=== PATIENT | female | born 1965 | race Caucasian/White ===

== ENCOUNTER → 2017-02-01 | Emergency (ER) | payer SELFPAY ==
[~2017-02-01] VITALS: Ht 167.6 cm; Wt 54.4 kg
[~2017-02-01] MED LIST: ALBUTEROL SULF8.5 GM INH; Albuterol ud Inhalation HHN SCH; ROBITUSSIN COU237 M1 PO
[2017-02-01 16:12] VITALS: BP 106/74
--- NOTE | 2017-02-01 16:27 | Emergency Room Report ---
History of Present Illness General Chief Complaint: Sore Throat Source: Patient Present Illness HPI 51-year-old female presents to the emergency department complaining of sore throat, and cough for "a long time ". Patient states that she wants to be hospitalized because she is "tired of living on the streets " patient states that she has a history of schizoaffective disorder and wants to be hospitalized for psychiatric problems. She denies SI or HI. Patient denies PSA. Patient denies hallucinations, auditory hallucinations. She states she has not take her psychiatric medication and she also reports history of smoking. Denies fevers, chills, neck pain or stiffness. denies mucus production. Reports hx of smoking. Denies CP, Palpitations, LOC, AMS, dizziness, Changes in Vision, Sensation, paresthesias, or a sudden severe headache. Allergies: Coded Allergies: ASPIRIN (Verified Allergy, Severe, 02/01/17) tongue edema HALOPERIDOL (Verified Allergy, Severe, 02/01/17) tongue edema PENICILLINS (Verified Allergy, Unknown, 02/01/17) Patient History Past Medical History: see triage record, psych hx Past Surgical History: none Pertinent Family History: none Last Menstrual Period: na Now: No Reviewed Nursing Documentation: PMH: Agreed, PSxH: Agreed Nursing Documentation-PMH Past Medical History: No History, Except For History Of Psychiatric Problem: Yes - schizoaffective Review of Systems All Other Systems: negative except mentioned in HPI Physical Exam Vital Signs Date Time Temp Pulse Resp B/P (MAP) Pulse Ox O2 Delivery O2 Flow Rate FiO2 02/01/17 15:44 98.1 80 16 106/74 98 Room Air Sp02 EP Interpretation: reviewed, normal General Appearance: well appearing, no apparent distress, alert, GCS 15, non- toxic Head: normocephalic, atraumatic Eyes: bilateral eye normal inspection, bilateral eye PERRL ENT: hearing grossly normal, normal pharynx, no angioedema, normal voice, uvula midline, moist mucus membranes, pharyngeal erythema Neck: full range of motion Respiratory: lungs clear, normal breath sounds, speaking full sentences, wheezing - expiratory wheezes bilat Cardiovascular #1: regular rate, rhythm Musculoskeletal: back normal, gait/station normal, normal range of motion Neurologic: alert, oriented x3, responsive, motor strength/tone normal, sensory intact, normal gait, speech normal Psychiatric: judgement/insight normal, memory normal, mood/affect normal, no suicidal/homicidal ideation, depressed affect Suicide Risk Assessment: Suicidal Ideation: No Had intent to initiate attempt: No Pt's plan for suicide attempt: No Has means to complete attempt: No Skin: normal color, no rash, warm/dry, well hydrated Medical Decision Making PA Attestation Dr. Gomez is my supervising Physician whom patient management has been discussed with. Diagnostic Impression: Primary Impression: Bronchitis ER Course 51-year-old female presents to the emergency department complaining of sore throat, and cough for "a long time ". Patient states that she wants to be hospitalized because she is "tired of living on the streets " patient states that she has a history of schizoaffective disorder and wants to be hospitalized for psychiatric problems. She denies SI or HI. Patient denies PSA. Patient denies hallucinations, auditory hallucinations. She states she has not take her psychiatric medication and she also reports history of smoking. Denies fevers, chills, neck pain or stiffness. denies mucus production. Reports hx of smoking. Denies CP, Palpitations, LOC, AMS, dizziness, Changes in Vision, Sensation, paresthesias, or a sudden severe headache. Ddx considered but are not limited to COPD/Asthma, URI, Pharyngitis, PNA, bronchitis, acute psychosis, SI/HI just to name a few. Vital signs: are WNL, pt. is afebrile H&PE are most consistent with Bronchitis most likely chronic, no evidence of bacterial infection at this time. PT. suicide assessment is Low-risk. pt's limited [id number] assessment demonstrates that homelessness is the root of her current motivation to seek hospitalization at this time. She is having limited sleep and poor nutritional intake due to living situation. pt. has no previous PSA's and no current plan for self harm or intentions to hurt others. ORDERS: none required at this time, the diagnosis is clinical ED INTERVENTIONS: -Albuterol NIKN I discussed with this patient that hospitalization is typically dependent upon acute emergent condition. This patient does not appear to have an acute psychiatric condition, is stable and at this time does not demonstrate a danger to herself or others. Discussed with patient that there are many reliable psychiatric resources available to the public and I will give her a resource information. Also discussed with patient that there is resources for transitional housing and homelessness which she mentioned several times to be the primary reason that she wants to be hospitalized. DISCHARGE: At this time pt. is stable for d/c to home. Will provide printed patient care instructions, and any necessary prescriptions. Care plan and follow up instructions have been discussed with the patient prior to discharge. Last Vital Signs Date Time Temp Pulse Resp B/P (MAP) Pulse Ox O2 Delivery O2 Flow Rate FiO2 02/01/17 16:12 98.1 16 106/74 98 Room Air 02/01/17 15:44 80 Disposition: HOME, SELF-CARE Condition: Stable Scripts Guaifenesin/Dextromethorphan (ROBITUSSIN COUGH-CHEST DM LIQ) 237 Ml Liquid 5 ML PO Q6HR, #237 ML Prov: Jannette Pierre 02/01/17 Albuterol Sulfate* (ALBUTEROL SULFATE MDI*) 8.5 Gm Hfa.aer.ad 2 PUFF INH Q4H, #1 INH 0 Refills Prov: Jannette Pierre 02/01/17 Patient Instructions: Acute Bronchitis, [id number], Sore Throat Additional Instructions: Take medications as directed. Follow up with a Primary Care Provider in 3-5 days, even if your symptoms have resolved. --Please review list of primary care clinics, if you do not already have a primary care provider Please review list of transitional housing resources, free/reduced cost health clinics, in addition to access mental health urgent care resource information that is provided. Return sooner to ED if new symptoms occur, or current symptoms become worse. - Please note that this Emergency Department Report was dictated using [employer] technology software, occasionally this can lead to erroneous entry secondary to interpretation by the dictation equipment. Jannette Pierre Feb 01, 2017 16:27
== END | disposition home or self-care (01) ==
LOC: EMR 16:30
DX: J40 Bronchitis, not specified as acute or chronic (principal); Z88.0 Allergy status to penicillin; Z88.8 Allergy status to other drugs, medicaments and biological substances; Z88.6 Allergy status to analgesic agent
CPT/HCPCS: 94640; 94664; 99284